=== PATIENT | female | born 1940 | race Caucasian/White ===

== ENCOUNTER 2025-05-18 05:39 | Outpatient (REF) | payer MEDICARE, SELFPAY ==
[2025-05-18 05:47] LABS: MANUAL DIFF FLAG NO
--- OUTSIDE RECORDS SUMMARY | 2025-05-18 05:49 | XMS_ITS | Clinical Summary ---
Author Organization [facility] Address [place] [address] Care Team Providers Care Performance Analyst Name Role Phone Saulo Jensen APRN Primary Care Provider [phone] Allergies Active Allergy Reactions Criticality Noted Date Comments Cat Dander 10/04/2017 Facial Mask 10/04/2017 Chlorpheniramine-Phenylpropan 2017 Unclassified Drug 09/12/2018 environmental Medications calcium carbonate/vitamin D3 (VITAMIN D-3 ORAL) Take by mouth. Activ e lactobacillus (BACID) Capsule Take 1 tablet by mouth daily. Active dha/epa/folic acid/vit A,D/min (DHA-EPA-VIT A-VIT E-WTODFUN-AV ORAL) Take by mouth. Activ e UNABLE TO FIND Alive bone supplement Active estradioL (ESTRACE) 0.01 % (0.1 mg/gram) CreamIndications: Postmenopausal atrophic vaginitis Place 1 g vaginally twice a week. 42.5 g 3 1 Active b complex vitamins Capsule Take 1 capsule by mouth daily. Active ketorolac tromethamine (Acular) 0.5 % DropsIndications: Combined forms of age-related cataract of right eye Place 1 drop into the right eye 4 times daily. Please start 3 days prior to CATARACT SURGERY 5 mL 1 2 Active prednisoLONE acetate (Pred-Forte) 1 % Drops, SuspensionIndicat ions:Combined forms of age-related cataract of right eye Place 1 drop into the right eye 4 times daily. To start day of CATARACT SURGERY 10 mL 1 2 Active moxifloxacin (Vigamox) 0.5 % DropsIndications: Combined forms of age-related cataract of right eye Place 1 drop into the right eye 4 times daily. Please start 3 days prior to CATARACT SURGERY 3 mL 1 2 Active levothyroxine (Synthroid) 75 mcg tabletIndications :Hypothyroidism, unspecified type Take 1 tablet by mouth daily. 90 tablet 3 3 Active levothyroxine (Synthroid) 75 mcg tablet Take 1 tablet by mouth daily. 3 tablet 3 Active Active Problems Problem Noted Date Diagnosed Date Pseudophakia of right eye 08/24/2022 Hammer toes of both feet 07/04/2021 Bunion 07/04/2021 Onychogryphosis 07/04/2021 Acquired hypothyroidism 03/08/2020 Age-related osteoporosis wit hout current pathological fracture 03/08/2020 Subdural hematoma 02/28/2018 Cystocele with uterine descensus 10/19/2017 Rectocele 10/19/2017 Recurrent UTI (urinary tract infection) 10/19/19 18 Astigmatism with presbyopia 02/03/2014 PVD (posterior vitreous detachment) 02/03/2014 Resolved Problems Problem Noted Date Diagnosed Date Resolved Date Ingrown nail of great toe of left foot 11/13/2018 07/04/2021 Raynaud's disease without gangrene 11/13/2018 11/13/2019 PAD (peripheral artery disease) 08/12/2018 11/13/2019 Family History Medical History Relation Comments Fractures Father hip Pacemaker Father Fractures Mother hip Thyroid Disease Mother Schizophrenia Son Anesthesia Reaction Neg Hx Bleeding Disorder Neg Hx Malignant Hyperthermia Neg Hx Postoperative Nausea and Vomiting Neg Hx Pseudocholinesterase Deficiency Neg Hx Pulmonary Embolism Neg Hx Relation Status Comments Brother Alive Daughter Alive Father (Age 92) Mother Son Alive Social History Tobacco Use Types Packs/Day Years Used Date Smoking Tobacco: Former Cigarettes 1 26 1 960 - 1986 Smokeless Tobacco: Never Tobacco Cessation:Counseling Given: Not Answered Alcohol Use Standard Drinks/Week Comments Yes 0 (1 standard drink = 0.6 oz pur e alcohol) rarely Comments No Sex and Gender Information Value Date Recorded Sex Assigned at Not on file Legal Sex Female 4:18 PM EDT Gender Identity Not on file Sexual Orientation Not on file Last Filed Vital Signs Vital Sign Reading Time Taken Comments Blood Pressure 130/76 05/15/2023 2:29 PM EDT Pulse 68 05/15/2023 2:29 PM EDT Temperature 36.9 C (98.5 F) 08/23/2022 10:53 AM EST Respiratory Rate 20 08/23/2022 11:00 AM EST Oxygen Saturation 97% 05/15/2023 2:29 PM EDT Inhaled Oxygen Concentration - - Weight 47.2 kg (104 lb) 05/15/2023 2:29 PM EDT Height 157.5 cm (5' 2 ) 08/23/2022 8:23 AM EST Body Mass Index 19.02 08/23/2022 8:23 AM EST Plan of Treatment Health Maintenance Due Date Last Done Comments Tetanus/Diphtheria/Pertussis Vaccines (1 - Tdap) 05/14 Pneumoccocal Vaccine: 50+ (1 of 1 - PCV) 1990 Zoster vaccine (1 of 2) 1990 Advance Directive 1995 Bone Density Scan 2005 RSV Vaccine (1 - 1-dose 75+ series) 2015 Covid-19 Vaccine (1 - season) 2025 Influenza (Flu) vaccine (1 o f 1 - Influenza standard series) 05/04/2025 Medical Devices Implanted Type Area Screen Writer Device Identifier Shelf Expiration Date Model / Serial / Lot Lens Iol [id number] +19.0d 6.0x13.0 Monofocal Post Biconvex ([id number]) ([employer]) - [id number] Implanted:Qty: 1 on 08/23/2022 by Ventura Up MD at [facility] IMPLANTS Right: Eye [employer] [facility] 01/31/2025 [id number] / / [id number] [place] [id number] [facility] Care Teams Performance Analyst Relationship Specialty Start Date End Date Saulo Jensen APRN [address] [facility] [address] PCP - General Family Medicine 11/13/18
[2025-05-18 06:22] LABS: Hematocrit 28.9 % (37.0-47.0); Hemoglobin 9.7 g/dl (12.0-16.0); Imm Gran Abs Auto 0.39 X10*3/uL (0.00-0.03); Imm Gran Pct Auto 4.8 % (0.0-0.4); Lymphocytes Absolute Auto 1.2 X10*3/uL (1.2-4.9); Mean Corpuscular HGB Conc 33.6 g/dl (31.0-35.0); Mean Corpuscular Hemoglobin 30.2 pg (27.0-33.0); Mean Corpuscular Volume 90.0 fL (80.0-98.0); NRBC Abs Auto 0.000 X10*3/uL (0.0-0.012); NRBC Pct Auto 0.0 /100WBC (0.0-0.2); Platelet Count 259 X10*3/uL (160-400); Red Blood Count 3.21 X10*6/uL (4.20-5.50); White Blood Count 8.2 X10*3/uL (4.8-10.8)
[2025-05-18 06:29] LABS: Hemoglobin A1C 95.1946 umol/L; Total Hemoglobin (HGBA1C) 2563.8495 umol/L
[2025-05-18 06:52] LABS: Alanine Aminotransferase 9 U/L (0-31); Albumin Level 3.2 g/dL (3.5-5.0); Alkaline Phosphatase 60 U/L (39-117); Anion Gap 12 (12-20); Aspartate Amino Transferase 21 U/L (5-31); Blood Urea Nitrogen 14 mg/dL (9-16); Calcium 8.7 mg/dL (8.4-10.2); Carbon Dioxide 24 mmol/L (22-29); Chloride 103 mmol/L (96-108); Estimated Glomerular Filt Rate > 60; Potassium 4.2 mmol/L (3.3-5.1); Sodium 135 mmol/L (135-145); Total Protein 5.7 g/dL (6.5-8.0)
== END 2025-05-18 05:40 | disposition home or self-care (01) ==
LOC: HO.MMNH2L 05:39
PROVIDERS: Visit Provider Student in an Organized Health Care Education/Training Program
DX: I10 Essential (primary) hypertension (principal); F03.90 Unspecified dementia, unspecified severity, without behavioral disturbance, psychotic disturbance, mood disturbance, and anxiety; Z13.1 Encounter for screening for diabetes mellitus
CPT/HCPCS: 36415; 80053; 83036; 85025